=== PATIENT | male | born 1995 | race African-American/Black ===

== ENCOUNTER 2017-04-30 20:23 | Emergency (ER) | payer OTHER ==
[~2017-04-30] VITALS: Ht 157.5 cm; Wt 79.4 kg
[~2017-04-30 20:23] MED LIST: IBUPROFEN 600600 M1 PO; NOHOMEMEDICATIONS; NORCO 5-325 TA1 EACH PO; OXYCODONE-ACET1 EACH PO; VALIUM2 MG PO
[2017-04-30] MEDS ORDERED: MUCINEX DM ER1 EACH PO (22:25)
[2017-04-30] MEDS ORDERED: IBUPROFEN 600600 M1 PO (22:25)
[2017-05-01 00:08] VITALS: BP 133/79
== END 2017-05-01 00:09 | disposition home or self-care (01) ==
LOC: ER 20:23
DX: J06.9 Acute upper respiratory infection, unspecified (principal); R36.9 Urethral discharge, unspecified; A74.9 Chlamydial infection, unspecified; F17.210 Nicotine dependence, cigarettes, uncomplicated; F10.99 Alcohol use, unspecified with unspecified alcohol-induced disorder; Z85.89 Personal history of malignant neoplasm of other organs and systems

== ENCOUNTER 2018-06-17 06:32 | Emergency (ER) | payer OTHER ==
[~2018-06-17] VITALS: Ht 190.5 cm; Wt 79.4 kg
[~2018-06-17 06:32] MED LIST changes: +MUCINEX DM ER1 EACH PO
[2018-06-17] MEDS ORDERED: MUCINEX1200 MG PO (07:05)
[2018-06-17 07:51] VITALS: BP 130/69
== END 2018-06-17 07:51 | disposition home or self-care (01) ==
LOC: ER 06:32
DX: R51 Headache (principal); J02.9 Acute pharyngitis, unspecified

== ENCOUNTER 2019-08-10 10:28 | Emergency (ER) | payer OTHER ==
[~2019-08-10] VITALS: Ht 190.5 cm; Wt 80.7 kg
[~2019-08-10 10:28] MED LIST changes: +MUCINEX1200 MG PO
[2019-08-10 13:57] VITALS: BP 105/61
[2019-08-10] MEDS ORDERED: BUTALB-APAP-CA1 EACH PO (13:57)
== END 2019-08-10 13:57 | disposition home or self-care (01) ==
LOC: ER 10:28
DX: R51 Headache (principal); F17.210 Nicotine dependence, cigarettes, uncomplicated; Z85.89 Personal history of malignant neoplasm of other organs and systems

== ENCOUNTER 2020-01-20 11:53 | Emergency (ER) | payer BC ==
[~2020-01-20] VITALS: Ht 190.5 cm; Wt 79.4 kg
[~2020-01-20 11:53] MED LIST changes: +BUTALB-APAP-CA1 EACH PO
[2020-01-20 12:48] LABS: HEMATOCRIT 44.7 % (42.0-52.0); HEMOGLOBIN 15.4 gm/dL (14.0-18.0); MCH 32.1 pg (26.0-34.0); MCHC 34.5 g/dL (28.0-37.0); MCV 93.3 fL (80.0-100.0); PLATELET COUNT 179 thou/uL (150-400); RDW 13.5 % (10.5-14.5); WBC 2.9 thou/uL (4.0-11.0)
[2020-01-20 13:00] LABS: CALCIUM 9.2 mg/dL (8.5-10.1); CREATININE 1.2 mg/dL (0.7-1.3); POTASSIUM 3.9 mmol/L (3.5-5.1)
[2020-01-20 13:03] LABS: URIC ACID* 6.3 mg/dL (3.5-7.2)
[2020-01-20 13:12] LABS: ABSOLUTE NEUTROPHILS 1.9 thou/uL (1.4-8.2); PLATELET ESTIMATE NORMAL
[2020-01-20] MEDS ORDERED: INDOMETHACIN 5050 M1 PO (13:17)
[2020-01-20] MEDS ORDERED: MEDROLDOSEPACK PO (13:17)
[2020-01-20] MEDS ORDERED: NORCO 5-325 TA1 EAC1 PO (13:17)
[2020-01-20 13:24] VITALS: BP 142/87
== END 2020-01-20 13:24 | disposition home or self-care (01) ==
LOC: ER 11:53
PROVIDERS: Physician Assistant
DX: M10.041 Idiopathic gout, right hand (principal); M79.89 Other specified soft tissue disorders; R07.89 Other chest pain; F17.210 Nicotine dependence, cigarettes, uncomplicated; Z85.830 Personal history of malignant neoplasm of bone

== ENCOUNTER 2020-06-25 11:04 | Emergency (ER) | payer OTHER ==
[~2020-06-25] VITALS: Ht 190.5 cm; Wt 77.1 kg
[~2020-06-25 11:04] MED LIST changes: +INDOMETHACIN 5050 M1 PO; +MEDROLDOSEPACK PO; +NORCO 5-325 TA1 EAC1 PO
[2020-06-25 11:10] VITALS: BP 146/66
[2020-06-25] MEDS ORDERED: PERCOCET 10-321 EAC1 PO (11:12)
[2020-06-25] MEDS ORDERED: ULTRAM 50MG TAB50 MG PO (11:57)
[2020-06-25] MEDS ORDERED: NAPROSYN500 MG PO (11:57)
== END 2020-06-25 12:35 | disposition home or self-care (01) ==
LOC: ER 11:04
PROVIDERS: Physician Assistant
DX: K02.7 Dental root caries (principal); F17.210 Nicotine dependence, cigarettes, uncomplicated; Z79.899 Other long term (current) drug therapy